=== PATIENT | female | born 1960 | race Caucasian/White ===

== ENCOUNTER 2022-05-18 23:04 | Emergency (ER) | payer OTHER, SELFPAY ==
[2022-05-18 23:11] VITALS: BP 141/75; PULSE 67; RESP 20; TEMP 37; O2SAT 98
--- NOTE | 2022-05-18 23:25 | DI.RAD.S_ITS ---
PROCEDURE: XR CHEST 1V INDICATIONS: chest pain TECHNIQUE: One view of the chest was acquired. COMPARISON: None. FINDINGS: Surgical changes and devices: None. Lungs and pleura: Lungs are clear. No pleural effusions or pneumothorax. Mediastinum: Mediastinal contours appear normal. Heart size is normal. Bones and chest wall: No suspicious bony lesions. Mild thoracic scoliosis. Overlying soft tissues appear unremarkable. IMPRESSION: No acute cardiopulmonary disease. Dictated by: Kath Burleson M.D. on 05/19/2022 at 0:02 Approved by: Kath Burleson M.D. on 05/19/2022 at 0:03
[2022-05-18 23:29] VITALS: PULSE 60; O2SAT 97
[2022-05-18 23:30] VITALS: BP 130/80; O2SAT 97
[2022-05-18 23:53] LABS: Add Manual Diff / Slide Review NO; Basophils Absolute Auto 0 /uL (0-100); Basophils Percent Auto 0.5 % (0-2); Eosinophils Absolute Auto 100 /uL (0-450); Hematocrit 39.4 % (36-46); Hemoglobin 13.4 g/dL (12.0-16.0); Lymphocytes Absolute Auto 2600 /uL (1100-4500); Lymphocytes Percent Auto 42.8 % (25-40); Mean Corpuscular Hemoglobin 31.6 PG (26-34); Mean Corpuscular Volume 92.9 fL (80-100); Monocytes Absolute Auto 700 /uL (0-900); Monocytes Percent Auto 11.6 % (3-14); Neutrophils Absolute Auto 2700 /uL (1500-7000); Neutrophils Percent Auto 44.1 % (50-75); Platelet Count 311 X10^3/uL (150-400); Red Blood Cell Count 4.24 X10^6/uL (4.0-5.2)
[2022-05-19] VITALS (11 sets, daily range): BP systolic 124–145; BP diastolic 67–80; PULSE 48–57; RESP 11–28; O2SAT 96–100
[2022-05-19 00:02] LABS: Alanine Aminotransferase 14 IU/L (<35); Albumin 4.2 g/dL (3.5-5.0); Albumin Globulin Ratio 1.4 (1.0-2.8); Alkaline Phosphatase 58 U/L (38-126); Aspartate Aminotransferase 18 IU/L (14-36); BUN Creatinine Ratio 18.6 (6-22); Bilirubin Total 0.3 mg/dL (0.2-1.3); Blood Urea Nitrogen 13 mg/dL (7-17); Calcium 8.8 mg/dL (8.4-10.2); Carbon Dioxide 25 mmol/L (22-32); Chloride 106 mmol/L (98-107); Creatine Kinase 68 U/L (30-135); Estimated Glomerular Filt Rate > 60 mL/min (>60); Globulin 2.9 g/dL (1.7-4.1); Glucose 100 mg/dL (80-110); HEMOLYSIS < 15 (0-50); Lipase 130 U/L (23-300); Magnesium 2.2 mg/dL (1.6-2.3); Potassium 4.1 mmol/L (3.4-5.1); Sodium 138 mmol/L (137-145); Total Protein 7.1 g/dL (6.3-8.2)
[2022-05-19 00:13] LABS: Troponin I < 0.012 ng/mL (0.01-0.034)
--- NOTE | 2022-05-19 02:47 | ED.GENADULT ---
HPI - General Adult General Chief complaint: Syncope Stated complaint: severe back pain, passed out Time Seen by Provider: 05/19/22 02:47 Source: patient Mode of arrival: Ambulatory History of Present Illness HPI narrative: Otherwise healthy 61-year-old woman who was doing some gentle stretching while she was making coffee on her both this morning felt a twinge of pain across her upper back that turned in to a severe spasm severe enough that she felt her vision tunneling. Her was immediately available in helped her to a sitting position where she ended up losing consciousness for approximately 2 minutes according to her . There was no seizure-like activity, no loss of bowel or bladder function. As she came to she was fatigued over a number of hours but had no additional neurologic complaints. Over the course of the day she has continued to improve and at this point is not even having any musculoskeletal upper back pain. She has never had similar episodes. She does not know recent fevers, cough, palpitations, chest pain, dyspnea, vomiting, diarrhea, abdominal pain, headaches. Related Data Home Medications Medication Instructions Recorded Confirmed No Known Home Medications 05/18/22 05/18/22 Allergies Allergy/AdvReac Type Severity Reaction Status Date / Time No Known Drug Allergies Allergy Verified 05/18/22 23:20 Review of Systems Review of Systems Narrative: Remainder of complete review of systems is otherwise unremarkable except for that included in the HPI. Exam Initial Vital Signs Initial Vital Signs: Vital Signs Temperature 98.6 F 05/18/22 23:11 Pulse Rate 67 05/18/22 23:11 Respiratory Rate 20 05/18/22 23:11 Blood Pressure 141/75 H 05/18/22 23:11 Pulse Oximetry 98 05/18/22 23:11 Oxygen Delivery Method 05/18/22 23:11 General: Healthy appearing, in no acute distress. Able to give a complete and coherent history. Well-nourished well-developed HEENT: Moist mucous membranes, normal sclera with reactive pupils, Neck: supple Respiratory: Lungs are clear to auscultation, no wheezing no rales no rhonchi. Full and symmetrical air movement Chest: Minor musculoskeletal tenderness in the posterior chest wall to superior to the scapula without any skin changes Cardiac: Regular rate and rhythm no murmurs no bruits Abdomen: Soft, nontender, good bowel tones, no flank pain Skin: Warm and dry, no rashes Neurologic: Grossly neurologically intact with no obvious asymmetries or abnormalities Extremities: No trauma, well perfused Psych: Cooperative, appropriate insight and affect Course Orders Ordered: ED Orders 05/18/22 23:25 XR chest 1V Stat EKG-12 Lead Stat 05/18/22 23:40 Complete Blood Count AUTO DIFF Stat Comprehensive Metabolic Panel Stat Lipase Stat Magnesium Stat Troponin & CK Cardiac Panel Stat Vital Signs Vital signs: Vital Signs - 8 hr 05/18/22 23:11 05/18/22 23:29 05/18/22 23:30 Temperature 98.6 F Pulse Rate 67 60 Respiratory Rate 20 Blood Pressure 141/75 H 130/80 Pulse Oximetry 98 97 Oxygen Delivery Method Room Air 05/18/22 23:30 05/19/22 00:00 Temperature Pulse Rate 57 L Respiratory Rate 18 Blood Pressure Pulse Oximetry 97 96 Oxygen Delivery Method Medical Decision Making Lab Data Result diagrams: 05/18/22 23:40 05/18/22 23:40 Labs: Lab Results 05/18/22 05/18/22 Range/Units 23:40 23:40 WBC 6.0 (4.5-11.0) X10^3/uL RBC 4.24 (4.0-5.2) X10^6/uL Hgb 13.4 (12.0-16.0) g/dL Hct 39.4 (36-46) % MCV 92.9 (80-100) fL MCH 31.6 (26-34) PG MCHC 34.0 (30-36) % RDW 13.0 (11.6-14.8) % Plt Count 311 (150-400) X10^3/uL Neut % (Auto) 44.1 L (50-75) % Lymph % (Auto) 42.8 H (25-40) % [place] % (Auto) 11.6 (3-14) % Eos % (Auto) 1.0 L (2-4) % Baso % (Auto) 0.5 (0-2) % Neut # (Auto) 2700 (4727-7455) /uL Lymph # (Auto) 2600 (9864-8257) /uL [place] # (Auto) 700 (0-900) /uL Eos # (Auto) 100 (0-450) /uL Baso # (Auto) 0 (0-100) /uL Sodium 138 (137-145) mmol/L Potassium 4.1 (3.4-5.1) mmol/L Chloride 106 (98-107) mmol/L Carbon Dioxide 25 (22-32) mmol/L BUN 13 (7-17) mg/dL Creatinine 0.70 (0.52-1.04) mg/dL Estimated GFR > 60 (>60) mL/min BUN/Creatinine Ratio 18.6 (6-22) Glucose 100 (80-110) mg/dL Calcium 8.8 (8.4-10.2) mg/dL Magnesium 2.2 (1.6-2.3) mg/dL Total Bilirubin 0.3 (0.2-1.3) mg/dL AST 18 (14-36) IU/L ALT 14 (<35) IU/L Alkaline Phosphatase 58 (38-126) U/L Total Creatine Kinase 68 (30-135) U/L CK-MB (CK-2) TNP CK-MB (CK-2) Rel Index TNP Troponin I < 0.012 (0.01-0.034) ng/mL Total Protein 7.1 (6.3-8.2) g/dL Albumin 4.2 (3.5-5.0) g/dL Globulin 2.9 (1.7-4.1) g/dL Albumin/Globulin Ratio 1.4 (1.0-2.8) Lipase 130 (23-300) U/L Imaging Data Chest x-ray: Radiologist's Impression: FINDINGS:? ? Surgical changes and devices:? None.? ? Lungs and pleura:? Lungs are clear.? No pleural effusions or pneumothorax.? ? Mediastinum:? Mediastinal contours appear normal.? Heart size is normal.? ? Bones and chest wall:? No suspicious bony lesions.? Mild thoracic scoliosis.? Overlying soft tissues appear unremarkable.? ? IMPRESSION:? No acute cardiopulmonary disease.? ? ? Dictated by: Kath Burleson M.D. on 05/19/2022 at 0:02 ? ? ECG Data Interpretation: Sinus bradycardia at a rate of 47 No acute ischemic changes MDM Narrative Medical decision making narrative: 61-year-old woman who describes twisting slightly having a severe stabbing pain across her left upper back than tunneling vision and then sat down and had a syncopal episode. All of her symptoms have in tired early resolved at this point. In listening to her description the most likely explanation at this point is an acute muscle spasm that caused the vasovagal episode. Lab work is reassuring without evidence of infection, acute coronary syndrome, no evidence of pneumothorax, enlarged cardiac silhouette, no suggestion of aortic dissection or pulmonary embolism. Questions are answered reassurance is given and she is safe for home discharge Discharge Plan Departure Patient Disposition: Home Clinical Impression: Vasovagal syncope, Musculoskeletal back pain Instructions: DI for Syncope in Adults (Fainting) Activity Restrictions/Additional Instructions: Thank you for coming in today. It sounds like you had very frightening experience this morning. Fortunately, your entire up in the emergency department is very reassuring. There is no evidence of infection, heart attack or heart attack like syndrome, pneumothorax, pulmonary embolism or other life-threatening in explanations. I suspect you pulled a muscle and had a spasm that was so severe that it caused a vasovagal reaction. This is we are body responds dramatically, your blood pressure drops and you have all of the symptoms that you describe. At this point everything has returned nicely to normal and there is no further workup that is required. You can absolutely return to your both and continue to enjoy the week with your friends on [place]. If you find that you are getting worse or develop any new symptoms, please feel free to return to the emergency department for further evaluation. Prescriptions: No Action No Known Home Medications
== END 2022-05-19 03:30 | disposition home or self-care (01) ==
PROVIDERS: Emergency Provider Emergency Medicine
DX: R55 Syncope and collapse (principal); M54.9 Dorsalgia, unspecified; R07.9 Chest pain, unspecified
CPT/HCPCS: 36415; 71045; 80053; 82550; 82553; 83690; 83735; 84484; 85025; 93005; 99283; 99284